=== PATIENT | male | born 1970 | race Caucasian/White ===

== ENCOUNTER 2020-08-14 20:02 | Outpatient (REF) | payer OTHER, SELFPAY ==
[2020-08-14 20:58] LABS: ALT 39 U/L (16-63); AST 15 U/L (15-37); Albumin 4.5 g/dL (3.4-5.0); Alkaline Phosphatase 65 U/L (46-116); Anion Gap 11.5 mmol/L (3-11); BUN 18 mg/dL (7-18); CO2 27.5 mmol/L (21.0-32.0); Calcium 9.5 mg/dL (8.5-10.1); Calculated LDL 147 mg/dL (<100); Chloride 101 mmol/L (98-107); Cholesterol 227 mg/dL (<200); Glucose 120 mg/dL (74-106); HDL Cholesterol 47 mg/dL (40-60); Potassium 4.4 mmol/L (3.5-5.1); Sodium 140 mmol/L (136-145); Total Protein 7.5 g/dL (6.4-8.2); Triglyceride 165 mg/dL (<150)
[2020-08-14 21:16] LABS: Hemoglobin A1C 5.7 % (<5.7)
== END 2020-08-14 20:03 | disposition home or self-care (01) ==
LOC: NCHCN 20:02
PROVIDERS: PCP Nurse Practitioner Family; Visit Provider Nurse Practitioner Family
DX: R73.03 Prediabetes (principal); I10 Essential (primary) hypertension; E78.5 Hyperlipidemia, unspecified
CPT/HCPCS: 80053; 80061; 83036

== ENCOUNTER 2022-04-27 06:06 | Day surgery (SDC) | payer OTHER, SELFPAY ==
--- NOTE | 2022-04-26 20:53 | W.PM.HP.N ---
Date of service: 04/27/22 Time of Service: 07:00 Assessment and Plan Assessment and plan (1) Screening for colon cancer: Status: Acute Assessment and plan: Plan: Colonoscopy w/ general & natural airway. The?patient will be scheduled by my office. The pt understands that they need to do a bowel prep and the importance of hydration during this.? The patient understands there is a theoretical risk of renal failure.? For healthy patients we use Gatorade/Miralax Prep.? ?For anyone with renal concerns- GoLytely will be used. Plavix and coumadin will need to be held except in unusual circumstances. ? Patients in A. Fib do not need to be bridged with Lovenox or on CVA prophylaxis.? A baby ASA can be continued but full dose ASA needs to be stopped for 10 days prior to the procedure. A complete H & P is required within 30 days of the procedure.? GETA w/natural airway is used for the colonoscopy.? Informed consent is obtained for the procedural (explained in simple layman's terms that?the pt and/or family could understand) explaining risks vs benefits and alternatives to the procedure and consequences if we do not do the procedure and need/rational for the procedure. Risks include but are not limited to: bleeding, infection, perforation of colon.? This would necessitate emergency surgery to repair the damage w/ possible ostomy; and other associated complications w/ the required surgery. ? Also complications of anesthesia including aspiration, MD/CVA/, inability to complete the procedure. I discussed with the?patient would they could expect during the procedure, post procedure and recovery time and risks.? The patient understands that they need to have a ride home after the procedure.? The patient was given all this information in writing and expressed understanding. If there are any questions or concerns please feel free to contact our office.? Generally Colonoscopy does not require antibiotics prophylaxis, (2) Prediabetes: Status: Acute (3) Hypertension: Status: Chronic (4) Hyperlipidemia: Status: Acute (5) Anxiety and depression: Status: Chronic (6) Balanitis xerotica obliterans: Status: Acute (7) Urethral stricture: Status: Acute History of Present Illness Narrative: Patient is here today for colonoscopy for colorectal cancer screening. he completed her bowel prep with just a clear yellow effluent. he is not having any chest pain or shortness of breath. No fever or chills. No productive cough. No upper respiratory tract like symptoms. No abdominal pain. he has not had any changes in her medications, past medical history or past surgical history since previously seeing in the office. All questions are answered to his satisfaction today. he is stable to proceed with the proposed procedure. Anesthesia: general (without airway) Previous surgical intolerances: None Previous surgical complications: None Pulmonary risk factors:? None PFT's: None Planned procedure: Yes Sleep apnea risks: yes Can climb one flight of stairs (12-13 steps) in less than 30 seconds without stopping and without symptoms: Yes The surgery proposed for this patient is: Low risk Active cardiac conditions: None ECHO: None Stress Test: None Active risk factors: None ASA (acetylsalicylic acid): Does note take Beta blockers: Does not take 51 y/o male with history of HTN, hyperlipidemia, prediabetes, anxiety and depression presents for colonoscopy screening pre-op. He denies a family history of colon cancer. Of note he states that he has had two brothers pass away from cancer, leukemia and the other was unknown.? He denies any changes in bowel habits including bloody or black tarry stools, abdominal pain, diarrhea or constipation. He denies constitutional symptoms. Denies use of marijuana or any other recreational or illegal drugs. He denies chest pain, palpitations, dyspnea or dyspnea with exertion. He describes exercsing intermittently riding his Peloton. He denies prior history or family history of adverse reactions or complications with anesthesia. The patient denies any history of stroke, MD, seizures, bleeding or clotting disorders. He denies having any implanted metal in his body. Review of Systems All systems reviewed & are unremarkable except as noted in HPI and below PFSH All Active Problems Screening for colon cancer (Acute) Prediabetes (Acute) Hypertension (Chronic) Hyperlipidemia (Acute) Anxiety and depression (Chronic) Balanitis xerotica obliterans (Acute) Urethral stricture (Acute) Surgical History History of hernia repair Family History Brother , Had Cancer diagnosis, however unsure of which type No problems noted. Brother Leukemia Social History Smoking/Tobacco Use Status: Former Tobacco Use Quit Date: 02/07/99 Smoking risk assessment performed?: Yes Alcohol Intake: current Alcohol Intake frequency: 0-2 drinks per day Alcohol type: wine and hard liquor Substance use type: does not use Do you feel safe at home: Yes Do you feel safe in your relationship?: Yes Meds Allergies and Home Medications Allergies Allergy/AdvReac Type Severity Reaction Status Date / Time buspirone [From BuSpar] Allergy Intermediate Nausea Verified 04/27/22 06:09 Home Medications Medication Instructions Recorded Confirmed Type albuterol sulfate 90 mcg/actuation 2 puff inhalation Q6H PRN 03/02/22 04/26/22 History aerosol inhaler (ProAir HFA) lidocaine HCl 2 % mucosal jelly 1 applic topical BID PRN catheter 03/02/22 04/26/22 History insertion lisinopril 20 1 tab PO DAILY 03/02/22 04/27/22 History mg-hydrochlorothiazide 25 mg tablet Exam Narrative Exam Narrative: PHYSICAL EXAM GENERAL APPEARANCE: Alert, healthy appearance, oriented, x 3,? in no acute distress HEAD, EYES, EARS, NECK, THROAT: Head is normocephalic, pupils equal, round, reactive to light and accommodation, ocular movement intact, sclera clear and no jaundice. ?Dentition intact. NECK: Trachea midline.? Neck supple.? No JVD LUNGS: normal respiration/normal chest excursion. ?Clear to auscultation bilaterally. ?No wheeze. ?HEART: Regular rate and rhythm. no murmurs ABDOMEN: soft and non-tender to palpation.? Normal bowel sounds.? Time Spent Time spent with Patient: <40 minutes Time was spent: preparing to see the patient(eg.review tests), obtaining and/or reviewing separately otained hiistory, ordering medications,tests, procedures, referring, communicating with other health home care coordinator, indepentently interpreting results, counseling the patient and care coordination
--- NOTE | 2022-04-26 20:57 | PDOC.DSDIS_ITS ---
Date of service: 04/27/22 Time of Service: 08:00 Discharge Plan Disposition Patient Disposition: Home Condition: Good Discharge Details Reason For Visit: CRC screening Attending Provider: Dunia Frias Primary Care Provider: Greta Falk Home Meds and New Rx's Prescriptions: Continued lisinopril-hydrochlorothiazide 20-25 mg tablet 1 tab PO DAILY lidocaine HCl 2 % jelly 1 applic topical BID PRN (Reason: catheter insertion) albuterol sulfate [ProAir HFA] 90 mcg/actuation HFA aerosol inhaler 2 puff inhalation Q6H PRN Discontinued bisacodyl [Dulcolax (bisacodyl)] 5 mg tablet,delayed release (DR/EC) 5 mg PO ONCE Qty: 4 0RF Rx Instructions: Take according to provider's instructions for colonoscopy prep. polyethylene glycol 3350 17 gram/dose powder 17 g PO ONCE Qty: 238 0RF Rx Instructions: To be taken as directed by prescriber's office for colonoscopy prep. Discharge Instructions Additional Instructions: DSU Colonoscopy Post- Op Instructions Instructions for Everyone who is given An esthesia: For your safety, please do the following for the next twenty-four (24) hours: *Do Not operate a motor vehicle (car, truck, motorcycle, etc.) *Do Not drink alcoholic beverages or use any recreational drugs for the first 24 hours or while taking pain medications. The medications in your body may have a reaction that can be dangerous. *Do Not make any important decisions or sign any important papers. Findings:multiple polyps minor diverticula Follow up: 3-5 yrs My office will send you a letter in 2 to 3 weeks time detailing as to what types of polyps these were and when we want you to repeat the colonoscopy 1. No lifting over 20 pounds or strenuous activity for the first 24 hours after your procedure. After 24 hours there are no restrictions on your activity but you may feel fatigued for a few days. 2. After you arrive home you may have a light meal and return to your normal diet as you can tolerate it without feeling sick to your stomach. 3. You may have a bloated, gaseous feeling in your belly (abdomen) after a colonoscopy. Passing gas and belching will help. Walking or lying down on your left side with your knees flexed may relieve the discomfort. Call the office at [phone] (Office) or [phone] (Hospital) right away if you notice any of the following: a.Vomiting of blood or ?coffee ground stools?. b.Rectal bleeding 1Tbsp, blood clots or continuous bleeding. c.Severe belly (abdominal) pain. d.A hard distended belly (abdomen) and an inability to pass gas. 4. Please don?t expect to have a normal BM (bowel movement) for 2-3 days after your procedure. 5. If there are questions regarding the findings of your procedure, please contact your doctor 6. If you are unable to contact your doctor with a problem, contact the hospital at [phone]. 7. Continue all your regular medications unless directed otherwise. I understand the above instructions and have no questions. Signature of Patient or Adult Escort Name of Responsible Adult Escort Signature of Nurse Date/Time Activity:: see above Diet:: see above Discharge Orders Discharge Orders: Discharge Order (Routine); Ordered 04/27/22 Ordered By: Dunia Frias DS: Diagnosis Discharge Diagnosis (1) Screening for colon cancer: Status: Acute (2) Prediabetes: Status: Acute (3) Hypertension: Status: Chronic (4) Hyperlipidemia: Status: Acute (5) Anxiety and depression: Status: Chronic (6) Balanitis xerotica obliterans: Status: Acute (7) Urethral stricture: Status: Acute (8) Adenomatous polyps: Status: Acute (9) Diverticula of colon: Status: Acute
--- NOTE | 2022-04-26 20:59 | ROE_ITS ---
Date of service: 04/27/22 Time of Service: 08:30 Operative Note Operative Note DATE OF PROCEDURE: 04/27/22 PRE-OP DIAGNOSIS: CRC screening SURGEON: Dunia Frias ANESTHESIA TYPE: General:No Airway Refer to Anesthesia Record COMPLICATIONS: None Patient was transported to: same day Patient's condition: stable Procedure Description: After informed consent was obtained the patient was taken to the procedure room and placed in a left decubitous position. Monitors were applied and a time out was done. The patients name, date of , procedure, allergies to medications and metal in their body was reviewed. The patient was then sedated. Once sedated and comfortable a rectal exam was done. External exam was normal. Internal exam revealed a normal sphincter tone and no palpable masses. The prostate nl. The scope was then introduced and retrofelexed. Grade Ix1 column internal hemorrhoids were identified. The scope was then advanced to the cecum w/out difficulty. The TI and appendiceal orifice were identified. The prep was BBPS 3 in all segments for a total of 9. The scope was then slowly retracted over 21 minutes back into the rectum. He has had a few small mouthed diverticula confined to the sigmoid colon with no signs of active bleeding or infection. He had multiple polyps that we removed. There was a flat 5 mm polyp in the cecum that was removed with a cold forceps. There is a 1 cm pedunculated polyp at 60 cm that is removed with a cold snare. There are .75 cm pedunculated polyps x2 at 40 cm that are removed with a cold snare. There is a flat 5 mm polyp at 40 cm that is removed with a cold snare. There is a flat 5 mm polyp th at is removed with a cold forcep At 30 cm. There is a flat 5 mm polyp that is removed with a cold forcep at 20 cm. There is a flat 5 mm polyp removed in the rectum with a cold . All specimens are retrieved and no bleeding is noted. The mucosa is pink and healthy with a normal vascular pattern. The scope was removed and the patient was woken up and taken back to Same day surgery in stable condition. The patient tolerated the procedure well and there were no immediate complications. Follow up: The patient should follow up in 3-5 years unless they develop changes in bowel habits or other new gastrointestinal complaints.
[2022-04-27 06:15] VITALS: BP 175/98; PULSE 80; RESP 18; TEMP 36.8; O2SAT 98
[2022-04-27] MEDS: Lactated Ringers 1,000 ML 80 ML IV (06:56)
--- NOTE | 2022-04-27 07:08 | W.ANESPRE ---
General Info Date of Service Date Performed: 04/27/22 Height: 5 ft 11 in Weight: 92 kg Body Mass Index (BMI): 28.3 Surgical Procedure: Operation Date: 04/27/22 07:35 Proposed Procedure Side Surgeon montez Frias, Meds Allergies and Home Medications Allergies Allergy/AdvReac Type Severity Reaction Status Date / Time buspirone [From BuSpar] Allergy Intermediate Nausea Verified 04/27/22 06:09 Home Medication Medication Instructions Recorded albuterol sulfate 90 mcg/actuation 2 puff inhalation Q6H PRN 03/02/22 aerosol inhaler (ProAir HFA) lidocaine HCl 2 % mucosal jelly 1 applic topical BID PRN catheter 03/02/22 insertion lisinopril 20 1 tab PO DAILY 03/02/22 mg-hydrochlorothiazide 25 mg tablet Current Visit Medications: Current Medications Generic Name Dose Route Start Last Admin Trade Name Freq PRN Reason Stop Dose Admin Hyoscyamine Sulfate 0.125 mg 04/27/22 08:52 Hyoscyamine 0.125 Mg Sl/Oral/Chew SL DIRECTED PRN Ringer's Solution 1,000 mls @ 80 mls/hr 04/27/22 06:00 04/27/22 06:56 IV 05/26/22 23:59 80 mls/hr INFUSION JENSEN Administration IV Miscellaneous Supplies 1 each 04/27/22 06:00 Iv Access IV 05/26/22 23:59 DIRECTED JENSEN Ondansetron HCl 4 mg 04/27/22 08:52 Ondansetron 4 Mg/2 Ml Vial IVP Q4H PRN PRN Nausea / Vomiting Sodium Chloride 0 ml 04/27/22 06:00 Normal Saline Flush 10 Ml Syr IV 05/26/22 23:59 PRN PRN Sodium Chloride 0 ml 04/27/22 06:00 Normal Saline 10 Ml Vial IJ 05/26/22 23:59 DIRECTED PRN Sterile Water 0 ml 04/27/22 06:00 Water,Injection,Sterile 10 Ml Vial IJ 05/26/22 23:59 DIRECTED PRN PFSH Active Problems Active Problems: Problem Status Onset Code Screening for colon cancer Z12.11 Prediabetes R73.03 Hypertension I10 Hyperlipidemia E78.5 Anxiety and depression F41.9, F32.A 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 Urethral stricture N35.919 Surgical History Surgical History History of hernia repair Tobacco Smoking/Tobacco Use Status: Former Tobacco Use Alcohol Alcohol Intake: current Alcohol intake frequency: 0-2 drinks per day Alcohol type: wine and hard liquor Substance Use Substance use type: does not use Vital Signs and Lab Results Vital Signs Most Recent Vital Signs in EMR: Most Recent Vital Signs Temp Pulse Resp BP Pulse Ox 36.8 C 80 18 175/98 H 98 04/27/22 06:15 04/27/22 06:15 04/27/22 06:15 04/27/22 06:15 04/27/22 06:15 Lab Results Blood Type / Crossmatch: No Data to Display Complete Blood Count: No Data to Display Complete Metabolic Panel: No Data to Display Liver Function Panel: No Data to Display Coagulation Panel: No Data to Display Cardiac Panel: No Data to Display Arterial Blood Gas: No Data to Display Venous Blood Gas: No Data to Display Pancreas Panel: No Data to Display Thyroid Panel: No Data to Display Infectious Disease: No Data to Display Blood Cultures: No Data to Display Toxicology Panel: No Data to Display Anesthesia Assessment and Plan Anesthesia History Personal History: No History of Anesthesia Complications Family History: No Family History of Anesthesia Complications Exercise Tolerance Exercise Tolerance: Metabolic Equivalents>4 Pertinent Negatives Pertinent Negatives: No Symptoms of GERD, No Major Cardiovascular Symptoms or Complaints and No Major Pulmonary Symptoms or Complaints Cardiac & Pulmonary Exam Cardiac Exam: Normal S1/S2 Heart Sounds Pulmonary Exam: Clear Bilateral Breath Sounds Implantable Cardiac Device Does patient have a Pacemaker or an ICD?: No Airway Exam Known Difficult Airway: No Mallampati Class: 1 Mouth Opening: Normal (> 3cm) Thyromental Distance: Greater than 3 cm Facial Hair: Full [place] Neck Range of Motion: Full ROM Neck Circumference: Normal Teeth Condition: Normal Dentition ASA Classification ASA Score: ASA 2 Emergency Case?: No NPO Status NPO Status: NPO Clears >2 hours, Solids >8 hours Anesthesia Plan Resuscitation Status: Full Code Anesthesia Technique: General Anesthesia Airway Planned: Natural Airway Monitors Used: Standard Monitors
[2022-04-27 07:10] VITALS: BMI 28.3
--- NOTE | 2022-04-27 07:41 | BOWEL_PTH ---
PATIENT: Georges Aguilar LOC: [facility] U#:[id number] AGE/SX: 51/M ROOM: RE04/27/[address]: Dunia Frias : 1970 BED: DIS: 04/27/2022 SPEC #: [id number] RECD: 04/27/22 12:51 STATUS: COURTNEY RE #: [id number] KHANH: 04/27/22 07:[address]: Dunia Frias DEPT: Surgical Specimen RECD BY: Inés Teresa ENTERED: 04/27/22 12:53 SP TYPE: Bowel OTHR DR: Greta Falk Tissues: 1 - BIOPSY BOWEL 2 - BIOPSY BOWEL 3 - BIOPSY BOWEL 4 - BIOPSY BOWEL 5 - BIOPSY BOWEL 6 - BIOPSY BOWEL Procedures: GROSS AND MICRO LEVEL 4 Comments: [id number]
[2022-04-27 08:25] VITALS: BP 126/91; PULSE 72; RESP 16; TEMP 36.4; O2SAT 95
[2022-04-27 08:54] VITALS: BP 137/91; PULSE 68; RESP 18; TEMP 36.4; O2SAT 98
--- NOTE | 2022-04-27 09:23 | W.ANESPOSTOP ---
Postoperative Evaluation Date, Time and Location Date Performed: 04/27/22 Time Performed: 09:24 Patient Location: Day Surgery Unit Vital Signs Most Recent Imported Vital Signs: Most Recent Vital Signs Temp Pulse Resp BP Pulse Ox 36.4 C L 68 18 137/91 H 98 04/27/22 08:54 04/27/22 08:54 04/27/22 08:54 04/27/22 08:54 04/27/22 08:54 Pain Score Most Recent Pain Score: Most Recent Pain Score Pain Level 0 04/27/22 08:54 Assessment Mental Status: Awake (Alert & Oriented to Patient Baseline) Airway and Respiratory Function: Patent airway with normal (patient baseline) respiratory exam Cardiovascular Function: Hemodynamically Stable Hydration Status: Adequately Hydrated Nausea & Vomiting: No Nausea or Vomiting Pain: Pt. Denies Any Pain Peripheral Nerve Block: Patient did not receive a nerve block
== END 2022-04-27 09:15 | disposition home or self-care (01) ==
PROVIDERS: PCP Nurse Practitioner Family; Visit Provider Surgery
PROC: 0DJD8ZZ Inspection of Lower Intestinal Tract, Via Natural or Artificial Opening Endoscopic (ICD-10-PCS; CPT 45378; principal; 2022-04-27 07:30)
DX: Z12.11 Encounter for screening for malignant neoplasm of colon (principal); K63.5 Polyp of colon; R73.03 Prediabetes; I10 Essential (primary) hypertension; E78.5 Hyperlipidemia, unspecified; F41.8 Other specified anxiety disorders; K64.0 First degree hemorrhoids; K57.30 Diverticulosis of large intestine without perforation or abscess without bleeding
CPT/HCPCS: 45385; 45380; 88305; J2704

== ENCOUNTER 2022-08-17 18:58 | Outpatient (REF) | payer OTHER, SELFPAY | END 2022-08-17 18:59 | disposition home or self-care (01) | LOC: LBN 18:58 | PROVIDERS: PCP Nurse Practitioner Family; Visit Provider Nurse Practitioner Family | DX: R30.0 Dysuria (principal) | CPT/HCPCS: 87086 ==

== ENCOUNTER 2022-11-08 06:03 | Day surgery (SDC) | payer OTHER, SELFPAY ==
[2022-11-08] VITALS (7 sets, daily range): BP systolic 102–154; BP diastolic 68–92; PULSE 70–82; RESP 15–25; TEMP 36.2–36.8; O2SAT 94–100; BMI 28.1
[2022-11-08] MEDS: Lactated Ringers 1,000 ML 80 ML IV (06:45)
--- NOTE | 2022-11-08 06:52 | HPE_ITS ---
Date of service: 11/08/22 Time of Service: 06:54 Assessment and Plan Assessment and plan (1) Balanitis xerotica obliterans: Status: Acute (2) Urethral stricture: Status: Acute Assessment and plan: We will dilate his urethra for symptomatic relief. 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 History of Present Illness History of Present Illness Chief Complaint: Meatal stenosis Narrative: Georges is a 52-year-old male referred to urology by urgent care for concerns of infection.? He has a history of BXO.? He has also underwent urethral dilation at [facility].? Most recently in 2014.? He reports that the urethral dilation has not always been successful.? He also has not been always compliant with keeping the urethra open with intermittent catheterization.? He is having a spraying/splitting of his stream.? This has become rather bothersome.? He also has concerns of the feeling as if he is never emptying when he voids. His most recent urgent care visit was done due to having blood and pus in his urine.? He states that his symptoms of hematuria and clots have cleared with the use of antibiotic therapy.? Review of Systems Narrative: No fevers or chills No vision change or dysphasia No diabetes or thyroid dysfunction No shortness of breath, cough or hemoptysis No chest pain or palpitations No nausea, vomiting, hepatitis, ulcers, jaundice, diarrhea or constipation No seizures, strokes or peripheral neuropathy No bleeding disorders or anemia No gout PFSH All Active Problems Screening for colon cancer (Acute) Prediabetes (Acute) Hypertension (Chronic) Hyperlipidemia (Acute) Anxiety and depression (Chronic) Balanitis xerotica obliterans (Acute) Urethral stricture (Acute) Adenomatous polyps (Acute) Diverticula of colon (Acute) few, Small mouth diverticula confined to sigmoid colon Tubular adenoma of colon (Acute ~04/27/22) Dysuria (Acute) Surgical History (Updated 11/08/22 @ 06:31 by Charity Camacho) History of colonoscopy with polypectomy (~04/27/22) History of hernia repair Hx of cystoscopy with urethral dilation approx 2014 [place] Family History Brother , Had Cancer diagnosis, however unsure of which type No problems noted. Brother Leukemia Social History Smoking/Tobacco Use Status: Former Tobacco Use Quit Date: 02/07/99 Smoking risk assessment performed?: Yes Alcohol Intake: current Alcohol Intake frequency: 0-2 drinks per day Alcohol type: wine and hard liquor Substance use type: does not use Housing: house Do you feel safe at home: Yes Do you feel safe in your relationship?: Yes Meds Allergies and Home Medications Allergies Allergy/AdvReac Type Severity Reaction Status Date / Time buspirone [From BuSpar] Allergy Intermediate Nausea Verified 11/08/22 06:31 Home Medications Medication Instructions Recorded Confirmed Type albuterol sulfate 90 mcg/actuation 2 puff inhalation Q6H PRN 03/02/22 11/08/22 History aerosol inhaler (ProAir HFA) lidocaine HCl 2 % mucosal jelly 1 applic topical BID PRN catheter 03/02/22 11/08/22 History insertion lisinopril 20 1 tab PO DAILY 03/02/22 11/08/22 History mg-hydrochlorothiazide 25 mg tablet triamcinolone acetonide 0.1 % See Rx Instructions .Route 11/02/22 11/08/22 Rx topical cream .COMPLEX #30 grams Exam Const General: cooperative Neck Neck: supple Resp Effort & Inspection: normal respiratory effort Auscultation: clear to auscultation bilaterally Cardio Rate: regular rate Rhythm: regular rhythm GI Palpation: soft and no masses Neuro General: patient alert, patient awake and patient oriented x3 Results Last Vital Signs Temp 36.6 C 11/08/22 06:34 Pulse 82 11/08/22 06:34 Resp 18 11/08/22 06:34 BP 154/89 H 11/08/22 06:34 Pulse Ox 98 11/08/22 06:34 Time Spent Time spent with Patient: <40 minutes Time was spent: other
--- NOTE | 2022-11-08 07:20 | W.ANESPRE ---
General Info Date of Service Date Performed: 11/08/22 Height: 5 ft 11 in Weight: 91.6 kg Body Mass Index (BMI): 28.1 Surgical Procedure: Operation Date: 11/08/22 07:40 Proposed Procedure Side Surgeon p Cystoscopy/Urethral Dilation Michael Wolfe MD Meds Allergies and Home Medications Allergies Allergy/AdvReac Type Severity Reaction Status Date / Time buspirone [From BuSpar] Allergy Intermediate Nausea Verified 11/08/22 06:31 Home Medication Medication Instructions Recorded albuterol sulfate 90 mcg/actuation 2 puff inhalation Q6H PRN 03/02/22 aerosol inhaler (ProAir HFA) lidocaine HCl 2 % mucosal jelly 1 applic topical BID PRN catheter 03/02/22 insertion lisinopril 20 1 tab PO DAILY 03/02/22 mg-hydrochlorothiazide 25 mg tablet triamcinolone acetonide 0.1 % See Rx Instructions .Route 11/02/22 topical cream .COMPLEX #30 grams Current Visit Medications: Current Medications Generic Name Dose Route Start Last Admin Trade Name Marissa PRN Reason Stop Dose Admin Ringer's Solution 1,000 mls @ 80 mls/hr 11/08/22 06:00 11/08/22 06:45 IV 12/05/22 23:59 80 mls/hr INFUSION JENSEN Administration Cefazolin Sodium/Dextrose 2 gm in 50 mls @ 100 mls/hr 11/08/22 06:00 Ancef Duplex IVPB 11/08/22 16:00 PREOP JENSEN IV Miscellaneous Supplies 1 each 11/08/22 06:00 Iv Access IV 12/05/22 23:59 DIRECTED JENSEN Sodium Chloride 0 ml 11/08/22 06:00 Normal Saline Flush 10 Ml Syr IV 12/05/22 23:59 PRN PRN Sodium Chloride 0 ml 11/08/22 06:00 Normal Saline 10 Ml Vial IJ 12/05/22 23:59 DIRECTED PRN Sterile Water 0 ml 11/08/22 06:00 Water,Injection,Sterile 10 Ml Vial IJ 12/05/22 23:59 DIRECTED PRN PFSH Active Problems Active Problems: Problem Status Onset Code Screening for colon cancer Z12.11 Prediabetes R73.03 Hypertension I10 Hyperlipidemia E78.5 Anxiety and depression F41.9, F32.A 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 Urethral stricture N35.919 Adenomatous polyps D36.9 Diverticula of colon K57.30 Tubular adenoma of colon ~04/27/22 D12.6 Dysuria R30.0 Surgical History Surgical History (Updated 11/08/22 @ 06:31 by Charity Camacho) History of colonoscopy with polypectomy (~04/27/22) History of hernia repair Hx of cystoscopy with urethral dilation approx 2015 [facility] Tobacco Smoking/Tobacco Use Status: Former Tobacco Use Alcohol Alcohol Intake: current Alcohol intake frequency: 0-2 drinks per day Alcohol type: wine and hard liquor Substance Use Substance use type: does not use Vital Signs and Lab Results Vital Signs Most Recent Vital Signs in EMR: Most Recent Vital Signs Temp Pulse Resp BP Pulse Ox 36.6 C 82 18 154/89 H 98 11/08/22 06:34 11/08/22 06:34 11/08/22 06:34 11/08/22 06:34 11/08/22 06:34 Lab Results Blood Type / Crossmatch: No Data to Display Complete Blood Count: No Data to Display Complete Metabolic Panel: No Data to Display Liver Function Panel: No Data to Display Coagulation Panel: No Data to Display Cardiac Panel: No Data to Display Arterial Blood Gas: No Data to Display Venous Blood Gas: No Data to Display Pancreas Panel: No Data to Display Thyroid Panel: No Data to Display Infectious Disease: No Data to Display Blood Cultures: No Data to Display Toxicology Panel: No Data to Display Anesthesia Assessment and Plan Anesthesia History Personal History: No History of Anesthesia Complications Family History: No Family History of Anesthesia Complications Exercise Tolerance Exercise Tolerance: Metabolic Equivalents>4 Cardiac & Pulmonary Exam Cardiac Exam: Normal S1/S2 Heart Sounds Pulmonary Exam: Clear Bilateral Breath Sounds Implantable Cardiac Device Does patient have a Pacemaker or an ICD?: No Airway Exam Known Difficult Airway: No Mallampati Class: 2 Mouth Opening: Normal (> 3cm) Thyromental Distance: Greater than 3 cm Neck Range of Motion: Full ROM Neck Circumference: Normal Teeth Condition: Normal Dentition ASA Classification ASA Score: ASA 2 Emergency Case?: No NPO Status NPO Status: NPO Clears >2 hours, Solids >8 hours Anesthesia Plan Resuscitation Status: Full Code Anesthesia Technique: General Anesthesia Airway Planned: LMA Monitors Used: Standard Monitors
[2022-11-08] MEDS: ceFAZolin 2 GM/50 ML BAG IVPB (07:40)
[2022-11-08] MEDS: Lidocaine 2% Jelly 6 ML SYR (07:43)
--- NOTE | 2022-11-08 07:55 | W.PM.DSUDISC ---
Date of service: 11/08/22 Time of Service: 07:55 Discharge Plan Disposition Patient Disposition: Home Condition: Stable Discharge Details Attending Provider: Michael Wolfe Primary Care Provider: Greta Falk Home Meds and New Rx's Prescriptions: No Action lisinopril-hydrochlorothiazide 20-25 mg tablet 1 tab PO DAILY lidocaine HCl 2 % jelly 1 applic topical BID PRN (Reason: catheter insertion) albuterol sulfate [ProAir HFA] 90 mcg/actuation HFA aerosol inhaler 2 puff inhalation Q6H PRN Patient Comments: 11/08/22 Pt has not used for years. Stated it was for a pneumonia. triamcinolone acetonide 0.1 % cream See Rx Instructions .ROUTE .COMPLEX Qty: 30 0RF Dose Instruction: APPLY A PEA SIZED AMOUNT TOPICALLY TWICE A DAY FOR TEN DAYS DIRECTED Rx Instructions: APPLY A PEA SIZED AMOUNT TOPICALLY TWICE A DAY FOR TEN DAYS DIRECTED Discharge Instructions Additional Instructions: murray to gravity - give pt choice of leg bag or larger drainage bag follow up 1 week for catheter removal Activity:: Activity as Tolerated Shower/Bathe:: 24 hours Diet:: As Tolerated Discharge Orders Discharge Orders: Discharge Order (Routine); Ordered 11/08/22 Ordered By: Michael Wolfe DS: Diagnosis Discharge Diagnosis (1) Balanitis xerotica obliterans: Status: Acute (2) Urethral stricture: Status: Acute
--- NOTE | 2022-11-08 07:58 | W.PM.OP ---
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 He has had a urethral dilation previously back in 2015. His stream is gradually slowed to the point where he is spraying and having difficulty emptying his bladder. He had a symptomatic urinary tract infection that was treated. He presents now for urethral dilation. Findings: Meatal stenosis with no more proximal strictures Procedure Description: The patient was brought to the running room on 11/08/2024. He was given preoperative IV antibiotics. After successful induction of general anesthesia, he was placed in the dorsal lithotomy position. His genitalia was prepped with Betadine. 2% Xylocaine jelly was instilled into the urethra to act as a local anesthetic. I was able to pass a guidewire through the urethral meatus and advanced the wire through the rest of the urethra. We began dilating his urethra starting at a size 10 Icelandic and went up to 24 Icelandic. The stricture was quite tight. Once the urethra was dilated, I was able to pass a 17 [place]ic cystoscope through the urethra into the bladder. I inspected the urethra and bladder with a 30 degree lens. No additional proximal strictures were identified. The bladder showed no papillary or nodular lesions. Both ureteral orifices appeared normal with no blood coming from either side. The cystoscope was withdrawn leaving the wire in place. I then passed an 18 [place] tip catheter over the wire. I advanced the catheter into the bladder and remove the wire. The catheter balloon was inflated with 10 cc of sterile water and the catheter was hooked to gravity drainage. The patient tolerated the procedure well with no complications.
[2022-11-08] MEDS: Phenazopyridine 200 MG TAB PO (08:35)
--- NOTE | 2022-11-08 08:41 | W.ANESPOSTOP ---
Postoperative Evaluation Date, Time and Location Date Performed: 11/08/22 Time Performed: 08:41 Patient Location: PACU Vital Signs Most Recent Imported Vital Signs: Most Recent Vital Signs Temp Pulse Resp BP Pulse Ox 36.5 C 74 22 107/80 95 11/08/22 08:19 11/08/22 08:19 11/08/22 08:19 11/08/22 08:19 11/08/22 08:19 Pain Score Most Recent Pain Score: Most Recent Pain Score Pain Level 0 11/08/22 08:19 Assessment Mental Status: Awake (Alert & Oriented to Patient Baseline) Airway and Respiratory Function: Patent airway with normal (patient baseline) respiratory exam Cardiovascular Function: Hemodynamically Stable Hydration Status: Adequately Hydrated Nausea & Vomiting: No Nausea or Vomiting Pain: Pain is tolerable per patient Peripheral Nerve Block: Patient did not receive a nerve block
== END 2022-11-08 09:35 | disposition home or self-care (01) ==
PROVIDERS: PCP Nurse Practitioner Family; Visit Provider Urology
PROC: 0T7D8ZZ Dilation of Urethra, Via Natural or Artificial Opening Endoscopic (ICD-10-PCS; CPT 52281; principal; 2022-11-08 07:30)
DX: N48.0 Leukoplakia of penis (principal); N35.919 Unspecified urethral stricture, male, unspecified site; N35.811 Other urethral stricture, male, meatal
CPT/HCPCS: 52281; J0131; J0690; J1100; J1885; J2250; J2405; J2704; J3010

== ENCOUNTER 2023-05-19 08:33 | Outpatient (REF) | payer OTHER, SELFPAY ==
[2023-05-19 15:29] LABS: HCT 45.1 % (40.0-50.0); HGB 15.2 g/dL (13.5-17.5); MCH 31.3 pg (27.0-33.0); MCHC 33.7 % (32.0-36.0); MCV 93 fL (80-95); MPV 11.1 fL (8.0-11.0); Platelet Count 263 10^3/uL (130-400); RBC 4.85 10^6/uL (4.36-5.78); RDW 12.7 % (11.8-14.1); RDW-SD 43.5 fL; WBC 5.78 10^3/uL (4.4-10.8)
[2023-05-19 15:49] LABS: Hemoglobin A1C 5.8 % (<5.7)
[2023-05-19 16:16] LABS: BUN 17 mg/dL (7-18); CREATININE 0.9 mg/dL (0.70-1.30); Calcium 9.4 mg/dL (8.5-10.1); Calculated LDL 169 mg/dL (<100); Chloride 102 mmol/L (98-107); Cholesterol 252 mg/dL (<200); Estimated GFR 102.12 (mL/min/1.73m2); Glucose 112 mg/dL (74-106); HDL Cholesterol 48 mg/dL (40-60); Potassium 4.3 mmol/L (3.5-5.1); Sodium 140 mmol/L (136-145); Triglyceride 179 mg/dL (<150)
[2023-05-19 22:49] LABS: PSA, Screening 0.1 ng/mL (<=3.5)
== END 2023-05-19 08:34 | disposition home or self-care (01) ==
LOC: NCHCN 08:33
PROVIDERS: PCP Physician Assistant; Visit Provider Physician Assistant
DX: N35.911 Unspecified urethral stricture, male, meatal (principal)
CPT/HCPCS: 80048; 80061; 84153; 85027; 83036; 87086

== ENCOUNTER 2023-11-20 12:57 | Emergency (ER) | payer OTHER, SELFPAY ==
[2023-11-20] VITALS (24 sets, daily range): BP systolic 142–167; BP diastolic 86–111; PULSE 85–108; RESP 15–25; TEMP 36.3; O2SAT 80–99
--- NOTE | 2023-11-20 12:45 | RT.EKG_ITS ---
APPROVED REPORT Exam: Resting ECG Reason for Exam: fluttering heart and SOB Patient Location: E HR:96 bpm ECG Measurements Heart Rate 96 AXIS IA 151 P 47 QRSd 102 QRS 38 QT 379 T 33 QTc 477 Conclusion Sinus rhythm...normal P axis, V-rate 60- 99
--- NOTE | 2023-11-20 13:00 | DI.CT_ITS ---
Exam(s) CT CHEST PE CTA EXAM: CT CHEST PE CTA CLINICAL HISTORY: chest pain, presyncope. TECHNIQUE: Imaging Protocol: CT angiography of the chest was performed using pulmonary embolus kamran col. Multi planar reconstructions were performed. CONTRAST MATERIAL: Intravenous: Omnipaque 350 Contrast volume: 100 cc COMPARISON: No exams were available for comparison FINDINGS: CHEST: PULMONARY ARTERIES: There are no intraluminal filling defects to suggest acute pulmonary emboli. LUNGS: There are no infiltrates nor evidence of pulmonary infarction.. There are no pleural effusions . MEDIASTINUM: There is no hilar nor mediastinal adenopathy. Visualized thyroid unremarkable. CARDIAC: Heart size is upper normal. There is no pericardial effusion.Caliber of the thoracic aorta is within normal limits. No evidence of dissection. There is no significant shift of the interventri cular septum. PARTIALLY VISUALIZED UPPERMOST ABDOMEN: Liver appears hypodense implying steatosis. No splenomegaly. No adrenal masses. OSSEOUS: No significant osseous lesions.No fractures. IMPRESSION: 1. No evidence of acute pulmonary emboli. No evidence of pulmonary infarction.No pleural effusions. 2. No evidence of aortic dissection nor pericardial effusion. Heart size is normal. 3. No infiltrates nor significant pulmonary nodules. No intrathoracic adenopathy. Called by myself to ER physician 11/20/2023 RADIATION DOSE DELIVERED: 118.94mGy.cm Total DLP DATA REPOSITORY: All CT scans at this facility are submitted to the National Radiology Data Registry (NRDR) Dose Index Registry (DIR) with the [employer] (ACR). RADIATION OPTIMIZATION: All CT scans at this facility use at least one of these dose optimization te chniques: automated exposure control; mA and/or kV adjustment per patient size (includes targeted exa ms where dose is matched to clinical indication); or iterative reconstruction.
--- NOTE | 2023-11-20 13:11 | ED.GENADUL_ITS ---
Discharge Plan Disposition Patient Disposition: Home Condition: Stable Discharge Details Clinical Impression: SVT (supraventricular tachycardia) Primary Care Provider: Eulogio Simmons ED Provider: Lincoln Kc Home Meds and New Rx's Prescriptions: New metoprolol succinate 25 mg tablet extended release 24 hr 25 mg PO DAILY Qty: 30 0RF Continued lisinopril-hydrochlorothiazide 20-25 mg tablet 1 tab PO DAILY lidocaine HCl 2 % jelly 1 applic topical BID PRN (Reason: catheter insertion) albuterol sulfate [ProAir HFA] 90 mcg/actuation HFA aerosol inhaler 2 puff inhalation Q6H PRN Patient Comments: 11/08/22 Pt has not used for years. Stated it was for a pneumonia. amlodipine 10 mg tablet 15 mg PO DAILY triamcinolone acetonide 0.1 % cream See Rx Instructions .ROUTE .COMPLEX Qty: 30 3RF Dose Instruction: APPLY A PEA SIZED AMOUNT TOPICALLY TWICE A DAY FOR TEN DAYS DIRECTED Rx Instructions: APPLY A PEA SIZED AMOUNT TOPICALLY TWICE A DAY FOR TEN DAYS DIRECTED atorvastatin 20 mg tablet 20 mg PO DAILY Discharge Instructions Instructions: Supraventricular tachycardia (SVT) Additional Instructions: Your blood work and CAT scan did not show any concerning findings at this time Follow-up with your primary care provider within 1 to 2 weeks. They may want to continue your metoprolol beyond 30 days. If you feel more ill, have severe chest pain or difficulty breathing return to the emergency department for reevaluation HPI General Mode of arrival: ambulatory . Date/Time Provider Initiated Documentation: 11/20/23 12:58 . Limitations to Documentation: no limitations . Information obtained by: patient . History of Present Illness 53 year old M presents to the emergency department with the chief complaint of lightheaded, fluttering in chest, described as moderate, Patient started experiencing this hour(s) (1) and it has been intermittent. No relieving factors improve symptom(s), No exacerbating factors reported . Patient notes denies fever/chills and shortness of breath. Patient did receive the following treatments prior to arrival, none Related Data Home Medications ?Medication ?Instructions ?Recorded ?Confirmed albuterol sulfate 90 mcg/actuation 2 puff inhalation Q6H PRN 03/02/22 11/20/23 aerosol inhaler (ProAir HFA) lidocaine HCl 2 % mucosal jelly 1 applic topical BID PRN catheter 03/02/22 11/20/23 insertion lisinopril 20 1 tab PO DAILY 03/02/22 11/20/23 mg-hydrochlorothiazide 25 mg tablet triamcinolone acetonide 0.1 % See Rx Instructions .Route 02/09/23 11/20/23 topical cream .COMPLEX #30 grams amlodipine 10 mg tablet 15 mg PO DAILY 02/23/23 11/20/23 atorvastatin 20 mg tablet 20 mg PO DAILY 11/20/23 11/20/23 metoprolol succinate 25 mg 25 mg PO DAILY #30 tabs 11/20/23 tablet,extended release 24 hr Previous Rx's ?Medication ?Instructions ?Recorded triamcinolone acetonide 0.1 % See Rx Instructions .Route 02/09/23 topical cream .COMPLEX #30 grams metoprolol succinate 25 mg 25 mg PO DAILY #30 tabs 11/20/23 tablet,extended release 24 hr Allergies Allergy/AdvReac Type Severity Reaction Status Date / Time buspirone (From [employer]) AdvReac Intermediate Nausea Verified 11/20/23 13:34 General Stated Complaint: Chest Pain DALTON: 3 Review of Systems All systems reviewed & are unremarkable except as noted in HPI and below Constitutional Constitutional: Denies chills, Denies fever(s) and Denies weakness Eyes Eyes: Denies loss of vision Cardiovascular Cardiovascular: Denies dyspnea and Reports other (palpitations, lightheaded) Respiratory Respiratory: Denies cough and Denies dyspnea Gastrointestinal Gastrointestinal: Denies abdominal pain, Denies nausea and Denies vomiting Neurologic Neurologic: Denies loss of vision and Denies weakness Exam Const General: no acute distress Orientation: alert [facility] Head: normal to inspection Ears: external ears normal General nose exam: external nose normal Mouth: moist mucous membranes Eyes General: appearance normal, both eyes and all related structures Neck Neck: normal visual inspection Resp Effort & Inspection: normal respiratory effort and able to speak in complete sentences Auscultation: clear to auscultation bilaterally Cardio Jugular venous pressure: no JVD Rate: regular rate Heart Sounds: no murmurs GI Palpation: soft and nontender Skin General skin exam: no rashes or lesions noted Neuro General: patient alert and patient oriented x3 Extrem General: normal to inspection Psych Mental Status: mental status grossly normal Course Vital Signs Vital signs: Vital Signs Temperature 36.3 C L 11/20/23 12:59 Pulse 93 H 11/20/23 12:59 Respiratory Rate 20 11/20/23 12:59 Blood Pressure 162/92 H 11/20/23 12:59 Pulse Oximetry 96 11/20/23 12:59 Temperature 36.3 C L 11/20/23 12:59 Pulse 93 H 11/20/23 12:59 Respiratory Rate 20 11/20/23 12:59 Blood Pressure 162/92 H 11/20/23 12:59 Pulse Oximetry 96 11/20/23 12:59 Oxygen Delivery Method Room Air 11/20/23 12:59 Oxygen Flow Rate 0 11/20/23 12:59 Medical Decision Making 53-year-old male with a history of hypertension, hyperlipidemia, who comes in with 1 hour of intermittent feeling of a fluttering in his chest, feeling lightheaded. Denies any severe chest pain, diaphoresis, vomiting, difficulty breathing. He is amatory on arrival with no signs of respiratory distress. He has clear lung sounds, no leg swelling or calf tenderness. After my initial exam he did have a brief run of SVT (narrow complex rhythm with rate of 180) which abated on its own. Suspect that he is having intermittent SVT, will check CBC, CMP, troponins and CTA of the chest to evaluate for PE. He is noted tearing back pain and equal peripheral pulses so doubt dissection. Patient had another run of SVT which abated on its own again, will provide a dose of metoprolol labs and imaging are pending. CTA pending, labs including delta troponin negative. He is hemodynamically stable and has not had any recurrent runs of SVT. CT read as negative by Dr. Beasley, patient hemodynamically stable and feels well. He is stable for discharge home follow-up with his PCP, return precautions given Differential Diagnosis Differential Diagnosis: SVT, A-fib, anemia, PE, NSTEMI ECG Data Attestation: I personally reviewed and interpreted this ECG (s) as follows: Prior ECG tracings: not available for review Interpretation: Sinus rhythm, rate of 96, [place] 151, PVCs, no STEMI Quality:SDOH Health Related Social Needs: No Data to Display PFSH All Active Problems (Updated 11/20/23 @ 15:16 by Lincoln Kc MD) SVT (supraventricular tachycardia) (Chronic) Screening for colon cancer (Acute) Prediabetes (Acute) Hypertension (Chronic) Hyperlipidemia (Acute) Anxiety and depression (Chronic) Balanitis xerotica obliterans (Acute) Urethral stricture (Acute) Adenomatous polyps (Acute) Diverticula of colon (Acute) few, Small mouth diverticula confined to sigmoid colon Tubular adenoma of colon (Acute ~04/27/22) Dysuria (Acute) Surgical History Hx of cystoscopy with urethral dilation approx 2014 [facility] History of colonoscopy with polypectomy (~04/27/22) History of hernia repair Family History Brother , Had Cancer diagnosis, however unsure of which type No problems noted. Brother Leukemia Social History Smoking/Tobacco Use Status: Former Tobacco Use Quit Date: 02/07/99 Smoking risk assessment performed?: Yes Alcohol Intake: current Alcohol Intake frequency: 0-2 drinks per day Alcohol type: wine and hard liquor Substance use type: does not use Housing: house Do you feel safe at home: Yes Do you feel safe in your relationship?: Yes
[2023-11-20 13:24] LABS: Abs Immature Grans 0.04 10^3/uL (0.0-0.06); Absolute Basophil Count 0.14 10^3/uL (0.0-0.2); Absolute Eosinophil Count 0.17 10^3/uL (0.0-0.7); Absolute Monocyte Count 0.72 10^3/uL (0.1-0.8); Absolute Neutrophil Count 8.63 10^3/uL (1.2-6.7); Basophils % 1.1 %; Eosinophils % 1.3 %; HCT 44.4 % (40.0-50.0); HGB 15.3 g/dL (13.5-17.5); Immature Grans % 0.3 %; Lymphocytes % 25.4 %; MCH 31.7 pg (27.0-33.0); MCHC 34.5 % (32.0-36.0); MCV 92 fL (80-95); MPV 10.2 fL (8.0-11.0); Monocytes % 5.5 %; Neutrophils % 66.4 %; Platelet Count 264 10^3/uL (130-400); RBC 4.83 10^6/uL (4.36-5.78); RDW 12.8 % (11.8-14.1); RDW-SD 43.2 fL
[2023-11-20] MEDS: Metoprolol CR 25 MG TABCR PO (13:32)
[2023-11-20 13:35] LABS: INR 1.1 (0.9-1.1); PTT Activated 25.3 sec (23.6-32.8); Prothrombin Time 10.9 sec (9.1-11.1)
[2023-11-20 13:41] LABS: ALT 39 U/L (16-63); AST 19 U/L (15-37); Albumin 4.5 g/dL (3.4-5.0); Alkaline Phosphatase 79 U/L (46-116); Anion Gap 14.4 mmol/L (3-11); BUN 16 mg/dL (7-18); Bilirubin, Total 0.49 mg/dL (0.2-1.0); CO2 25.6 mmol/L (21.0-32.0); CREATININE 0.9 mg/dL (0.70-1.30); Calcium 9.6 mg/dL (8.5-10.1); Chloride 102 mmol/L (98-107); Estimated GFR 101.49 (mL/min/1.73m2); Glucose 118 mg/dL (74-106); Potassium 3.4 mmol/L (3.5-5.1); Sodium 142 mmol/L (136-145); Total Protein 7.9 g/dL (6.4-8.2); Troponin I 4 ng/L (<or=76)
[2023-11-20] MEDS: Omnipaque 350 MG/ML 100 ML BTL IJ (14:01)
[2023-11-20] MEDS: Normal Saline - Diluent 50 ML VIAL IJ (14:01)
[2023-11-20 14:49] LABS: Troponin I 5 ng/L (<or=76)
--- NOTE | 2023-11-20 15:54 | DI.VRAD_ITS ---
PROCEDURE INFORMATION: Exam: CTA Chest With Contrast Exam date and time: 11/20/2023 2:00 PM Age: 53 years old Clinical indication: Other: Chest pain, near syncope TECHNIQUE: Imaging protocol: Computed tomographic angiography of the chest with contrast. Exam focused on the arteries. 3D rendering (Not supervised by radiologist): MIP and/or 3D reconstructed images were created by the technologist. Contrast material: OMNIPAQUE 350; Contrast volume: 100 ml; Contrast route: INTRAVENOUS (IV); COMPARISON: US RENAL 11/02/2023 11:00 AM FINDINGS: Pulmonary arteries: No evidence of pulmonary embolus to the segmental level. Aorta: No aneurysm of the aorta. No dissection of the aorta. Lungs: Atelectasis in the lingula Pleural spaces: Unremarkable. No pneumothorax. No pleural effusion. Heart: Unremarkable. No cardiomegaly. No pericardial effusion. Coronary arteries: Coronary artery calcifications may indicate coronary artery disease. Lymph nodes: Unremarkable. No enlarged lymph nodes. Bones/joints: 1.1 cm sclerotic density noted in the T8 compatible with bone island (enostosis) in patient without history of neoplastic disease. Nuclear medicine bone scan may be useful for further evaluation if clinically indicated. Soft tissues: Unremarkable. IMPRESSION: 1. No evidence of pulmonary embolus to the segmental level. 2. No aneurysm of the aorta. 3. No dissection of the aorta. Dictated and Authenticated by: Alla Ann MD. Ordering:AUDIE Stark MD
== END 2023-11-20 15:40 | disposition home or self-care (01) ==
PROVIDERS: Emergency Provider Emergency Medicine; PCP Physician Assistant
DX: I47.19 Other supraventricular tachycardia (principal); Z87.891 Personal history of nicotine dependence; I10 Essential (primary) hypertension; E78.5 Hyperlipidemia, unspecified
CPT/HCPCS: 71275; 80053; 93005; 99285; 84484; 85025; 85610; 85730; 93010; 99284; J3490

== ENCOUNTER 2024-09-28 07:42 | Outpatient (REF) | payer OTHER, SELFPAY ==
[2024-09-28 16:27] LABS: Hemoglobin A1C 5.5 % (<5.7)
[2024-09-28 17:04] LABS: ALT 58 U/L (16-63); AST 34 U/L (15-37); Albumin 4.3 g/dL (3.4-5.0); Alkaline Phosphatase 72 U/L (46-116); Anion Gap 11.6 mmol/L (3-11); BUN 13 mg/dL (7-18); Bilirubin, Total 0.7 mg/dL (0.2-1.0); CO2 25.4 mmol/L (21.0-32.0); Calcium 9.3 mg/dL (8.5-10.1); Calculated LDL 172 mg/dL (<100); Chloride 103 mmol/L (98-107); Cholesterol 245 mg/dL (<200); Estimated GFR 100.86 (mL/min/1.73m2); Glucose 126 mg/dL (74-106); HDL Cholesterol 44 mg/dL (>or=40); Potassium 4.2 mmol/L (3.5-5.1); Sodium 140 mmol/L (136-145); Total Protein 7.1 g/dL (6.4-8.2); Triglyceride 146 mg/dL (<150)
[2024-09-28 22:08] LABS: PSA, Screening 0.4 ng/mL (<=3.5)
== END 2024-09-28 07:43 | disposition home or self-care (01) ==
LOC: NCHCN 07:42
PROVIDERS: PCP Physician Assistant; Visit Provider Physician Assistant
DX: I10 Essential (primary) hypertension (principal); E78.5 Hyperlipidemia, unspecified; R73.03 Prediabetes; Z12.5 Encounter for screening for malignant neoplasm of prostate
CPT/HCPCS: 80053; 80061; 84153; 83036